=== PATIENT | male | born 1940 | race African-American/Black ===

== ENCOUNTER 2025-09-30 05:27 | Emergency (ER) | payer OTHER ==
[~2025-09-30] VITALS: Ht 162.6 cm; Wt 99.0 kg
[2025-09-30 05:35] VITALS: O2SAT 98
[2025-09-30] MEDS: ACETAMINOPHEN 325MG TABLET PO ONE (06:56)
[2025-09-30 07:15] LABS: BASOPHILS % 0.9 % (0.0-2.0); EOSINOPHILS % 3.5 % (0.0-5.0); HEMATOCRIT. 34.2 % (42.0-52.0); HEMOGLOBIN. 11.4 g/dL (14.0-18.0); LYMPHOCYTES % 16.6 % (20.0-50.0); MEAN PLATELET VOLUME 7.2 fl (7.4-10.4); MONOCYTES % 9.7 % (2.0-8.0); NEUTROPHILS % 69.3 % (40.0-76.0); PLATELET 180 x1000/uL (130-400); RED BLOOD CELL COUNT 3.93 mill/uL (4.7-6.1); RED CELL DISTRIBUTION WIDTH 13.3 % (11.6-14.6)
[2025-09-30 07:25] LABS: CREATININE 1.2 mg/dL (0.6-1.3)
[2025-09-30 07:26] LABS: UREA NITROGEN BLOOD 16 mg/dL (9-23)
[2025-09-30 07:27] LABS: ASPARTATE AMINOTRANSFERASE 10 IU/L (<34)
[2025-09-30 07:28] LABS: BILIRUBIN DIRECT 0.1 mg/dL (<=3.0); BILIRUBIN TOTAL 0.4 mg/dL (0.1-1.0); PROTEIN TOTAL 6.2 g/dL (6.0-8.3)
[2025-09-30 10:00] VITALS: BP 111/69; PULSE 95; RESP 15; TEMP 36.8; O2SAT 98
== END 2025-09-30 10:02 | disposition home or self-care (01) ==
LOC: ER 05:27 → CMPBEDREQ 12:56
DX: R10.32 Left lower quadrant pain (principal); E78.00 Pure hypercholesterolemia, unspecified; I10 Essential (primary) hypertension; Z86.73 Personal history of transient ischemic attack (TIA), and cerebral infarction without residual deficits; Z79.899 Other long term (current) drug therapy
CPT/HCPCS: 36415; 80048; 80076; 85025; 99283